=== PATIENT | male | born 1970 | race Caucasian/White ===

== ENCOUNTER 2017-10-11 07:07 | Emergency (ER) | payer BC, OTHER ==
[~2017-10-11] VITALS: Ht 175.3 cm; Wt 85.0 kg
[2017-10-11 07:12] VITALS: TEMP 36.8; Ht 175.3 cm; Wt 85.0 kg
[2017-10-11] MEDS ORDERED: ACET-1256 PO (07:59)
--- NOTE | 2017-10-11 08:23 | DIAGNOSTIC IMAGING REPORT ---
L RIBS UNILATERAL WITH PA CHEST, THORACIC SPINE 3 VIEWS ROUTINE CLINICAL HISTORY: 47 years-old Male presenting with L back and rib pain. TECHNIQUE: Frontal and oblique views of the left ribs as well as PA view of the chest were obtained. Additionally, 3 views of the thoracic spine were obtained. COMPARISON: None. FINDINGS: Left RIBS: No displaced left rib fracture. However, cortical indistinctness of the left posterior 10th and 11th ribs raising concern for underlying lesions, most especially in the 11th rib. Chest x-ray: Cardiomediastinal silhouette normal. Lungs and pleural spaces clear. Upper abdomen normal. Thoracic spine: Normal thoracic kyphosis. Vertebral bodies maintain normal height and alignment. Intervertebral disc heights maintained. Mild degenerative change with disc osteophyte complexes evident at several levels. No radiographic evidence of a compression deformity or subluxation. No radiographic evidence of osseous neural foraminal narrowing. No significant scoliosis. IMPRESSION: 1. Apparent cortical indistinctness of the left posterior 10th and 11th ribs raises concern for underlying lesions, most especially in the 11th rib. Further evaluation with chest CT recommended. 2. No acute cardiopulmonary disease. 3. No radiographic evidence of acute osseous injury of the thoracic spine. Mild degenerative change. The report will be called/faxed according to standard departmental protocol. Electronically signed by: Prince Barakat M.D. 10/11/2017 8:21 AM Dictated Date/Time: 10/11/2017 8:17 AM
[2017-10-11] MEDS ORDERED: OPTIRAY 320 IV PRN (08:45)
[2017-10-11 08:56] LABS: BASO % 0.3 %; BASO ABS # 0.03 K/uL (0-0.2); EOS % 0.5 %; EOS ABS # 0.05 K/uL (0-0.5); HEMATOCRIT 46.6 % (42-52); HEMOGLOBIN 16.3 g/dL (14.0-18.0); IG# 0.02 K/uL (0.00-0.02); LYMPH % 21.8 %; LYMPH ABS # 2.15 K/uL (1.2-3.4); MEAN CELL VOLUME 94.3 fL (80-100); MEAN PLATELET VOLUME 10.2 fL (7.4-10.4); MONO ABS # 0.69 K/uL (0.11-0.59); NEUT % 70.2 %; NEUT ABS # 6.92 K/uL (1.4-6.5); PLATELET COUNT 232 K/uL (130-400); RED CELL DISTRIBUTION WIDTH SD 47.9 fL (36.4-46.3); WHITE BLOOD COUNT 9.86 K/uL (4.8-10.8)
[2017-10-11 09:13] LABS: CALCIUM 9.3 mg/dl (8.5-10.1); CREATININE 0.98 mg/dl (0.60-1.40); POTASSIUM 4.5 mmol/L (3.5-5.1)
--- NOTE | 2017-10-11 10:10 | DIAGNOSTIC IMAGING REPORT ---
CHEST CT WITH CONTRAST CT DOSE: 565.82 mGy.cm HISTORY: Acute left-sided rib and back pain with cortical indistinctness and irregularity seen on comparison radiographs of same day L side rib back pain; ? mass on xray TECHNIQUE: Multiaxial CT images of the chest were performed following the intravenous administration of contrast. A dose lowering technique was utilized adhering to the principles of ALARA. COMPARISON: Chest and rib radiographs of same day. FINDINGS: Subcentimeter low attenuating lesions of the thyroid are noted without dominant nodule. No pathologic adenopathy about the chest identified. Heart is normal in size without pericardial effusion. The thoracic aorta is normal in both course and caliber. No dissection or aneurysm identified. The opacified pulmonary arterial tree appears to be unremarkable. There is no pneumothorax or pleural effusion. Mild paraseptal and centrilobular emphysematous changes are noted within an upper lung zone prominent distribution. Mild subsegmental bibasilar atelectasis. No suspicious pulmonary nodules or masses identified. 4 mm structure along the right lateral tracheal wall suggests some mucosal secretions. Central airways are otherwise clear and unremarkable. Mild degenerative changes are noted about the thoracic spine. Ill-defined ovoid lucent lesion involves the inferior left cortical margin of the posterior left 11th rib nicely seen on images [id number] of series 4 measuring up to 1.4 cm in length on the coronal images. This lesion causes endosteal scalloping with cortical breakthrough along the inferior cortical margin and likely pathologic acute to subacute nondisplaced fracture which is present on image 280 of series 4. No associated large soft tissue mass identified. The previously questioned bony abnormality involving the posterior left 10th rib is not identified. No additional suspicious bony lesions are seen. IMPRESSION: 1. Ovoid 1.4 cm lucent bone lesion with endosteal scalloping and cortical breakthrough involves the inferior cortical margin of the posterior left 11th rib. Additionally, there is an acute to subacute nondisplaced likely pathologic fracture which traverses this lesion. Differential considerations would include but are not limited to benign causes such as enchondroma however malignant etiologies such as metastasis, lymphoma or plasmacytoma are also differential considerations. Close follow-up is needed. 2. The previously questioned bone lesion of the left 10th rib is likely projectional in nature. No additional focal bone lesions or fractures are identified. 3. No adenopathy, pleural effusion or focal airspace consolidation. Electronically signed by: Ben Fisher M.D. 10/11/2017 10:09 AM Dictated Date/Time: 10/11/2017 9:44 AM
[2017-10-11 10:48] VITALS: BP 141/100; PULSE 89; O2SAT 98
[2017-10-11] MEDS ORDERED: HYDR-5688 PO (11:00)
--- NOTE | 2017-10-11 16:15 | EMERGENCY ROOM VISIT NOTE ---
ED Visit Note First contact with patient: 07:20 Chief Complaint: Back pain. History of Present Illness: Mr. Julio is a 47 year-old white male who ambulates into the ED complaining of left sided thoracic back pain. Historically patient reports any previous significant injuries or surgeries to the thoracic back. Patient reports approximately 4-5 days ago he started experiencing left-sided thoracic back pain. Since that time the pain has been mild but constant. He reports it slightly got worse over the weekend and he rested in bed most of the weekend. Then this morning while attempting to get out of bed he felt a popping sensation and the pain became severe. Currently he describes his pain as a constant sharp sensation. He places his discomfort just inferior to the scapula on the left. He rates his discomfort 6/ 10 at rest. His pain worsens with palpation of the area, the ribs and all movement at the waist but most severe with right lateral bending. He has not identified any alleviating factors related to the pain. He reports yesterday he did take Tylenol without relief of his discomfort. He denies any associated symptoms. He denies recent repetitive or direct trauma. Patient denies fevers, chills, sweats, skin eruptions, skin color changes, upper respiratory tract symptoms, shortness of breath, chest pain, nausea, vomiting, diarrhea, constipation, rectal bleeding, black/tarry stools, urinary symptoms, hematuria genital paresthesias, bowel and bladder dysfunction, lower extremity weakness/numbness. Review of Systems: As noted above in history of present illness. All body systems were reviewed and found to be negative as noted above. Past Medical History: Status post tonsillectomy and Lasix surgery Current Medications: Patient denies. Allergies to Medications: Patient denies. 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 Physical Examination: Vital Signs: Date Time Temp Pulse Resp B/P (MAP) Pulse Ox O2 Delivery O2 Flow Rate FiO2 10/11/17 10:48 89 16 141/100 98 Room Air 10/11/17 09:07 70 20 123/87 96 Room Air 10/11/17 07:12 36.8 77 18 136/95 98 GENERAL: 47-year-old male in moderate distress due to pain, nontoxic-appearing, afebrile and hemodynamically stable. NEUROLOGICAL: Awake, alert and oriented to person, place and time. Answering questions appropriately and following commands. Normal gait. Good hand eye coordination. SKIN: Warm, dry and pink. No soft tissue eruptions or trauma noted. HEENT: Atraumatic and normocephalic. BACK: No tenderness over the bony cervical, thoracic and lumbar spines. Moderate tenderness over the right paraspinous musculature just inferior to the scapula with visible and palpable muscle spasm. Decreased range of motion in the waist in all movements due to pain. Negative straight leg raise test. No CVA tenderness. There is a 5-6 cm lipoma over the right side of the lumbar spine just off the bony processes in the area of L1-L3 that is not erythematous or tender. THORAX: Lungs sounds are clear to auscultation and equal bilaterally with symmetrical chest wall. Mild to moderate tenderness over the left lower ribs without bony crepitus, subcutaneous air or deformities noted. ABDOMEN: Flat, soft and nontender. Positive bowel sounds in all quadrants. No guarding, rigidity or organomegaly. LOWER EXTREMITIES: No gross bony deformities. No shortening or malrotation. No tenderness over the hips, knees, lower legs, ankles. 2+ patellar and Achilles deep tendon reflexes intact and equal bilaterally. 5/5 muscle strength in all movements of the hips knees and ankles. Able to distinguish light sensations to all dermatomes. Throughout the legs the skin was warm and pink and capillary refill was brisk. ED Course: Patient is assessed as noted above. Patient's medication list was reviewed. Laboratory Testing: Test 10/11/17 08:30 10/11/17 08:45 Range/Units Urine Color YELLOW Urine Appearance CLEAR CLEAR Urine pH 6.0 4.5-7.5 Urine Specific Alpha 1.023 1.000-1.030 Urine Protein NEG NEG Urine Glucose (UA) NEG NEG Urine Ketones NEG NEG Urine Occult Blood NEG NEG Urine Nitrite NEG NEG Urine Bilirubin NEG NEG Urine Urobilinogen NEG NEG Urine Leukocyte Esterase NEG NEG White Blood Count 9.86 4.8-10.8 K/uL Red Blood Count 4.94 4.7-6.1 M/uL Hemoglobin 16.3 14.0-18.0 g/dL Hematocrit 46.6 42-52 % Mean Corpuscular Volume 94.3 80-100 fL Mean Corpuscular Hemoglobin 33.0 25-34 pg Mean Corpuscular Hemoglobin Concent 35.0 32-36 g/dl Platelet Count 232 130-400 K/uL Mean Platelet Volume 10.2 7.4-10.4 fL Neutrophils (%) (Auto) 70.2 % Lymphocytes (%) (Auto) 21.8 % Monocytes (%) (Auto) 7.0 % Eosinophils (%) (Auto) 0.5 % Basophils (%) (Auto) 0.3 % Neutrophils # (Auto) 6.92 1.4-6.5 K/uL Lymphocytes # (Auto) 2.15 1.2-3.4 K/uL Monocytes # (Auto) 0.69 0.11-0.59 K/uL Eosinophils # (Auto) 0.05 0-0.5 K/uL Basophils # (Auto) 0.03 0-0.2 K/uL RDW Standard Deviation 47.9 36.4-46.3 fL RDW Coefficient of Variation 14.0 11.5-14.5 % Immature Granulocyte % (Auto) 0.2 % Immature Granulocyte # (Auto) 0.02 0.00-0.02 K/uL Sodium Level 135 136-145 mmol/L Potassium Level 4.5 3.5-5.1 mmol/L Chloride Level 103 98-107 mmol/L Carbon Dioxide Level 27 21-32 mmol/L Anion Gap 5.0 3-11 mmol/L Blood Urea Nitrogen 19 7-18 mg/dl Creatinine 0.98 0.60-1.40 mg/dl Est Creatinine Clear Calc Drug Dose 101.8 ml/min Estimated GFR () 106.7 Estimated GFR (Non- 92.1 BUN/Creatinine Ratio 19.3 10-20 Random Glucose 106 70-99 mg/dl Calcium Level 9.3 8.5-10.1 mg/dl Thoracic Spine X-Rays: Were read by myself and the radiologist and shows mild degenerative changes with disc osteophytes at several different levels with no compression deficits or subluxations. No radiographic evidence of neural foraminal narrowing or significant scoliosis. PA Chest and Left Rib X-Rays: Were read by myself and the radiologist shows a normal PA chest with no signs of infiltrates, effusions or pneumothorax. Normal heart silhouette. Left ribs shows no displaced rib fractures but there was a cortical indistinctness of the left posterior 10th and 11th ribs concerning for an underlying lesion. Chest CT with IV Contrast: Was reviewed by myself and read by the radiology showing ovoid 1.4 cm lucency bone lesion with endosteal scalloping and cortical breakthrough involving the inferior cortical margin of the posterior left 11th rib. Additionally there is an acute to subacute nondisplaced likely pathological fracture which transverse this lesion of questionable etiology. Previous questionably bone lesion of the left 10th rib. No adenopathy, pleural effusion or focal airspace consolidation. Patient was offered pain medication and refused. Patient was reassessed multiple times during his stay in the emergency department. Patient's case was reviewed with Dr. Cadena; we agreed on diagnostic approach, treatment, disposition and plan. Patient's case was consulted with case management, Adriana Moulton, she help to establish the patient with the [facility] in [place] for primary care provider and provided information for follow-up with oncology. Patient was educated about today's findings and instructed on his treatment plan ; he verbalized understanding and agreement with this plan. Clinical Impression: Pathological left-sided rib fractures. Lesion inferior cortical margin of the 11th rib. Decision-Making: Initially my differential diagnosis I considered rib fracture, pneumonia, pyelonephritis, kidney stone, chest mass and other causes. Disposition: Patient discharged home in stable condition; prior to departure he was reassessed and subjectively reported he was feeling better and rated his discomfort 2/10. Plan: Patient was placed on a sliding pain medication scale of ibuprofen, acetaminophen and [place]; his name was checked in the state database and no red flags were noted and he was given appropriate narcotic precautions. Patient was encouraged to stop smoking. Patient was encouraged to follow-up with oncology and the [facility] in [place] for further evaluation and care. Patient was encouraged return the ED for worsening/uncontrolled pain, shortness of breath, coughing up blood, fevers or any new/concerning symptoms.
== END 2017-10-11 11:13 | disposition home or self-care (01) ==
LOC: C.EDB 07:08
DX: M84.48XA Pathological fracture, other site, initial encounter for fracture (principal); M89.9 Disorder of bone, unspecified; F17.200 Nicotine dependence, unspecified, uncomplicated; X58.XXXA Exposure to other specified factors, initial encounter

== ENCOUNTER → 2017-11-29 | Outpatient (CLI) | payer BC ==
[~2017-11-29] MED LIST: ACET-1256 PO; HYDR-5688 PO
--- NOTE | 2017-11-30 07:34 | DIAGNOSTIC IMAGING REPORT ---
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 TECHNIQUE: A PET/CT was performed from the skull base through the upper thighs following intravenous injection of 13.47 mCi of F 18 FDG IV. The injection was performed at 8:01 AM on November 29, 2017 and imaging began at 9:10 AM on November 29, 2017. Unenhanced CT was performed for attenuation correction purposes and anatomic localization. COMPARISON STUDY: Chest CT October 11, 2017. FINDINGS: Head and neck: No abnormal FDG uptake is identified within the neck. Physiologic uptake is noted within the salivary glands and tonsils. This is symmetric. There is no cervical lymphadenopathy. Chest: No thoracic lymphadenopathy is present. There is mild upper lobe predominant paraseptal emphysema. No suspicious pulmonary nodules are identified although evaluation is compromised due to respiratory motion artifact inherent to PET/CT imaging. Abdomen and Pelvis: No abdominal or pelvic lymphadenopathy is present. There is a 1.3 cm diverticulum of the posterior bladder. No abnormal FDG uptake is identified within the abdomen or the pelvis. Musculoskeletal: Note is made of a healing fracture of the posterior left 11th rib which was shown on CT of October 11, 2017. It is made of an associated lytic lesion involving the posterior left 11th rib that measures approximately 1.7 cm. There is mild FDG uptake at this site with an SUV max of 3.1. No additional foci of increased radiotracer uptake are identified. No additional lytic lesions are identified within the visualized skeletal structures. IMPRESSION: Redemonstration of a lytic lesion within the posterior left 11th rib with an associated healing pathologic fracture. Mild FDG uptake at this site may be due to the lytic lesion or the healing fracture. While nonspecific, this would be consistent with the provided history of Langerhans cell histiocytosis. A neoplastic process could appear similar. No additional FDG avid skeletal lesions identified. Electronically signed by: Juliano Zabala M.D. 11/30/2017 7:32 AM Dictated Date/Time: 11/29/2017 10:47 AM
== END | disposition home or self-care (01) ==
LOC: C.PET 06:43
PROVIDERS: ATTEND Internal Medicine Hematology & Oncology
DX: C96.6 Unifocal Langerhans-cell histiocytosis (principal)

== ENCOUNTER → 2018-02-25 | Outpatient (CLI) | payer BC ==
[~2018-02-25] MED LIST changes: -ACET-1256 PO; -HYDR-5688 PO; +[UNRECOGNIZED DRUG - REMARK]
[2018-02-25 13:43] LABS: BLOOD UREA NITROGEN 14 mg/dl (7-18); CALCIUM 8.4 mg/dl (8.5-10.1); CARBON DIOXIDE 23 mmol/L (21-32); CHOLESTEROL 215 mg/dl (0-200); CREATININE 0.79 mg/dl (0.60-1.40); GLUCOSE 87 mg/dl (70-99); LDL CHOLESTEROL CALCULATED 114 mg/dl; POTASSIUM 3.9 mmol/L (3.5-5.1); SODIUM 135 mmol/L (136-145)
== END | disposition home or self-care (01) ==
LOC: C.LABPBG 09:27
PROVIDERS: ATTEND Family Medicine
DX: Z00.00 Encounter for general adult medical examination without abnormal findings (principal); Z13.220 Encounter for screening for lipoid disorders; Z12.5 Encounter for screening for malignant neoplasm of prostate